=== PATIENT | female | born 1950 | race Caucasian/White ===

== ENCOUNTER 2019-03-31 17:09 | Inpatient (IN) | payer MEDICARE, BC ==
[~2019-03-31] VITALS: Ht 165.1 cm; Wt 61.2 kg
--- NOTE | 2019-03-31 17:12 | NUR ---
PT BIBPA FROM HOME FOR FAILURE TO THRIVE, PER REPORT PT HASNT BEEN EATING/NOT TAKING CARE OF HERSELF; PT TO BED 10, -SOB, NAD NOTED, PENDING MD GATES
[2019-03-31] MEDS ORDERED: LEVO50TA8 PO (17:29)
[2019-03-31 17:36] LABS: BASOPHILS # (AUTO) 0.1 /CMM (0.0-0.2); BASOPHILS % (AUTO) 0.8 % (0.0-2.0); EOSINOPHILS % (AUTO) 0.3 % (0.0-6.0); HEMATOCRIT 38 % (33-45); HEMOGLOBIN 12.6 g/dL (11.5-14.8); LYMPHOCYTES # (AUTO) 1.3 /CMM (0.8-4.8); LYMPHOCYTES % (AUTO) 14.8 % (20.0-44.0); MEAN CORPUSCULAR HGB CONC 33 g/dl (31.0-36.0); MEAN CORPUSCULAR VOLUME 95 fL (82-100); MONOCYTES # (AUTO) 0.9 /CMM (0.1-1.30); MONOCYTES % (AUTO) 10.1 % (2.0-12.0); NEUTROPHILS # (AUTO) 6.5 /CMM (1.8-8.9); PLATELET COUNT (AUTO) 432 /CMM (150-450); RED BLOOD CELL COUNT(AUTO) 3.97 MIL/uL (4.0-5.2); WHITE BLOOD COUNT (AUTO) 8.7 K/uL (4.3-11.0)
[2019-03-31 17:43] LABS: CALCIUM, SERUM 10.2 mg/dL (8.5-10.1); CARBON DIOXIDE 16 mmol/L (21-32); CHLORIDE 103 mmol/L (98-107); GLUCOSE 108 mg/dL (74-106); POTASSIUM 4.2 mmol/L (3.5-5.1); SODIUM SERUM 137 mmol/L (136-145); UREA NITROGEN, BLOOD 39 mg/dL (7-18)
[2019-03-31 17:49] LABS: ALANINE AMINOTRANSFERASE 35 U/L (12-78); ALBUMIN 2.8 g/dL (3.4-5.0); ALKALINE PHOSPHATASE 76 U/L (46-116); ASPARTATE AMINOTRANSFERASE 24 U/L (15-37); BILIRUBIN,DIRECT 0.1 mg/dL (0.0-0.2); BILIRUBIN,TOTAL 0.6 mg/dL (0.2-1.0); SALICYLATE 2.8 mg/dL (2.8-20.0); TOTAL PROTEIN, SERUM 7.7 g/dL (6.4-8.2)
[2019-03-31 17:55] LABS: ACETAMINOPHEN < 10 ug/ml (10-30); ALCOHOL, BLOOD < 3 mg/dL (0-0)
[2019-03-31 18:14] LABS: APPEARANCE,URINE Slightly Cloudy (CLEAR); BILIRUBIN,URINE MODERATE (NEGATIVE); BLOOD, URINE Small Ery/uL (NEGATIVE); COLOR,URINE Yellow (YELLOW); KETONES,URINE >=160 (NEGATIVE); LEUKOCYTE ESTERASE ,URINE Small (NEGATIVE); NITRITE, URINE Negative (NEGATIVE); PH,URINE 5.5 (5.0-8.0); PROTEIN,URINE 30 mg/dl (NEGATIVE); UGLUCOSE Negative (NEGATIVE); UROBILINOGEN,URINE 0.2 EU/dL (0.2)
[2019-03-31 18:24] LABS: BACTERIA,URINE Few /HPF (None Seen); FINE GRANULAR CASTS,URINE Rare /LPF (None Seen); HYALINE CASTS, URINE Few /LPF (None Seen); SQUAMOUS EPITHELIAL CELL,UR Moderate /HPF (None Seen)
--- NOTE | 2019-03-31 19:15 | NUR ---
PT RECEIVED FROM CON XIAO FOR HARRIS. IV LINE STARTED ON L AC 20G. PT IN BED. AND NOTED. PT REFUSED TO HAVE HER VS TAKEN.
[2019-03-31] MEDS ORDERED: ONDANSETRON HCL/PF 4 MG/2 ML VIAL IVP ONE (19:30)
[2019-03-31] MEDS ORDERED: IV NS 0.9% 1,000 ML BAG IV ONE (19:30)
[2019-03-31] MEDS ORDERED: ONDANSETRON HCL/PF 4 MG/2 ML VIAL ONE (19:30)
--- NOTE | 2019-03-31 20:14 | NUR ---
REPORT GIVEN TO CON MABRY FOR HARRIS.
--- NOTE | 2019-03-31 20:26 | NUR ---
PT BROUGHT UP TO UNIT BY EMT ON [facility].
[2019-03-31] MEDS ORDERED: LORAZEPAM 0.5 MG TABLET PO PRN (20:30)
[2019-03-31] MEDS ORDERED: TEMAZEPAM 7.5 MG CAPSULE PO PRN (20:30)
[2019-03-31] MEDS ORDERED: MAGNESIUM HYDROXIDE 30 ML UDC PO PRN (20:30)
[2019-03-31] MEDS ORDERED: MAG HYDROX/AL HYDROX/SIMETH 30 ML UDC PO PRN (20:30)
[2019-03-31] MEDS ORDERED: ACETAMINOPHEN 325 MG TABLET PO PRN (20:30)
--- NOTE | 2019-03-31 20:30 | NUR ---
Admitted a 68 y/o female from Home. Patient on 5150 hold, per hold patient has been increasingly depressed and isolating herself. She has been in bed for 2 weeks and not eating condition is getting worse everyday. Patient also refused medical treatment. Upon face to face evaluation, initially, patient presents as alert and oriented x 3-4, anxious, angry, upset, crying, uncooperative, refused contraband checking. When explained the hold, patient angrily stated that it is not true. Patient arrived via gurney with 1 persons assist. Patient assisted to the room, refused body check and pictures. Patient is ambulatory and steady gait. Limit setting done. Redirected the patient. Time given to the patient. Will continue to monitor
--- NOTE | 2019-03-31 20:30 | NUR ---
Admitted a 68 y/o female from Home evaluated at [facility] ER. Patient on 5150 hold, c/o increase depression and suicidal ideation with plan to OD. Upon face to face evaluation, patient presents as alert and oriented x 4, calm, cooperative, withdrawn, teary eyed and patient stated that she just wished that she will stop breathing and be with her daughter who last November. Patient also stated that she is hearing the voices of her daughter trying to tell her something that she should have told when she was still alive. Patient contracted for safety and seeking helf to prevent her from hurting herself. Per patient, she also had history of overdose 2 years ago. Patient arrived via gurney with 2 persons assist. Patient assisted to the room, changed to clean gown. Skin and body assessment done. Pictures taken and placed in chart. Patient has difficulty walking, PT eval triggered. Explained the paper works and patient signed the consents. Informed of visiting hours and unit policies. Belongings and contraband checked. Q15 min checks initiated. Care plan started. Vital signs checked and recorded. Patient's rights discussed, guide to prescription meds handbook provided. Patient advised of the hold. MRSA specimen collected. Notified Dr. Ward of the admission. Will monitor patient for mood, safety and behavior. Will endorse to the day shift. Addendum: 04/01/19 at 0005 by YAMILET DUMAS II, RN typed in error
--- NOTE | 2019-03-31 20:50 | NUR ---
Seen patient talking to her roommate. Patient calm, cooperative and paranoid. Patient denies SI/HI and denies hearing voices. Explained the paper works and patient signed the consents. Still refused body check and pictures. Informed patient of visiting hours and unit policies. Belongings and contraband checked. Q15 min checks initiated. Care plan started. Vital signs checked and recorded. Patient's rights discussed, guide to prescription meds handbook provided. Patient advised of the hold. MRSA specimen collected in the ER. Notified Dr. Pettit of the admission. Will continue to monitor and will endorse to the day shift.
--- NOTE | 2019-03-31 23:50 | NUR ---
Notified Outdoor Adventure Instructor. Kaylene Duque of the admission and Kaylene reconcile the medication. Will continue to monitor
[2019-04-01] MEDS ORDERED: HYDROCORTISONE 0.5% CREAM 28.35 GM TUBE TP PRN (02:00)
[2019-04-01 02:07] VITALS: BP 129/89
[2019-04-01 06:22] LABS: BASOPHILS % (AUTO) 0.4 % (0.0-2.0); EOSINOPHILS % (AUTO) 1.3 % (0.0-6.0); HEMATOCRIT 35 % (33-45); HEMOGLOBIN 11.7 g/dL (11.5-14.8); LYMPHOCYTES # (AUTO) 1.9 /CMM (0.8-4.8); MEAN CORPUSCULAR HGB CONC 34 g/dl (31.0-36.0); MEAN CORPUSCULAR VOLUME 94 fL (82-100); MONOCYTES # (AUTO) 0.8 /CMM (0.1-1.30); MONOCYTES % (AUTO) 11.8 % (2.0-12.0); NEUTROPHILS # (AUTO) 4.2 /CMM (1.8-8.9); NEUTROPHILS % (AUTO) 59.5 % (43.0-81.0); PLATELET COUNT (AUTO) 412 /CMM (150-450); RED BLOOD CELL COUNT(AUTO) 3.68 MIL/uL (4.0-5.2)
[2019-04-01 06:38] LABS: CHOLESTEROL 90 mg/dL (<200); HDL CHOLESTEROL 29 mg/dL (40-60); LDL 48 mg/dL (0-99); TRIGLYCERIDES 86 mg/dL (30-150)
[2019-04-01 06:41] LABS: ALBUMIN 2.5 g/dL (3.4-5.0); BILIRUBIN,TOTAL 0.6 mg/dL (0.2-1.0); CALCIUM, SERUM 9.8 mg/dL (8.5-10.1); TOTAL PROTEIN, SERUM 6.9 g/dL (6.4-8.2)
--- NOTE | 2019-04-01 06:57 | NUR ---
gps nrn note: Notified Domingo () of the admission of he patient. Will continue to monitor
[2019-04-01 08:00] VITALS: BP 127/81
--- NOTE | 2019-04-01 09:38 | NUR ---
WOUND CARE CONSULT: PT PRESENTS AMBULATORY AND CONTINENT WITH CHEST/BACK RASH, PRESENT ON ADMISSION. DEFER TO MD FOR RASH. WILL SEE PRN.
--- NOTE | 2019-04-01 09:44 | NUR ---
RN-CO: Patient was seen and examined by Dr Holt.
[2019-04-01] MEDS: LEVOTHYROXINE SODIUM 50 MCG TABLET PO SCH ×2 (10:38→10:40)
--- NOTE | 2019-04-01 12:10 | NUR ---
GROUP NOTE: SW encouraged pt to attend group on this present day discussing the topic of discharge, pt refused to attend stating she was feeling very depressed.
--- NOTE | 2019-04-01 12:35 | NUR ---
CHERIE called the pts , Domingo ([phone]), and left a message on his voicemail stating that the SW would like to discuss the pts treatment plan and initial discharge plan.
--- NOTE | 2019-04-01 13:15 | NUR ---
Initial Discharge Plan: Pt currently resides at [address] [place] [address]; ([phone]), with her . Per pt, she would like to return to her home. CHERIE will work with the pt and the MD regarding appropraite discharge planning. SW will form a safe and proper discharge plan.
[2019-04-01] MEDS: ENSURE ENLIVE 237 ML LIQUID (VANILLA) PO SCH ×2 (13:53→17:00)
--- NOTE | 2019-04-01 16:02 | NUR ---
Patient refused taking her levothyroxine medication and stated that "my medication comes in capsule form" and i don't take synthroid". RN tried redirecting the patient and explained that another name for synthroid is levothyroxine. She still refused taking the medication. Therefore, medication was wasted because it was opened already.
[2019-04-01 20:00] VITALS: BP 134/59
--- NOTE | 2019-04-01 20:00 | NUR ---
PT IS ANXIOUS V/S BP 134/59 PULSE 124 OFFERED ATIVAN PT REFUSED. WILL CONTINUE TO MONITOR FOR SAFETY.
--- NOTE | 2019-04-01 21:20 | NUR ---
PT STILL ANXIOUS CHECK V/S BP 147/78 PULSE 112 OFFERED ATIVAN PT STILL REFUSED. EXPLAIN THE RISK AND BENEFITS OF NOT TAKING HER MEDS. PAGED DR BETANCUR FOR ORDERS. WILL CONTINUE TO MONITOR FOR SAFETY.
[2019-04-01] MEDS ORDERED: MIRTAZAPINE 15 MG TABLET PO SCH (22:00)
--- NOTE | 2019-04-02 02:35 | NUR ---
CHECK PT'S V/S 157/[address] BETANCUR AND ORDERED STAT EKG. WILL CONTINUE TO MONITOR.
--- NOTE | 2019-04-02 03:17 | NUR ---
ORDERED TO TRANSFER PT TO MED SURG YO. BUFFY (ICT SALES REPRESENTATIVE) INFORMED AND MED SURG KORINA (CHARGE NURSE). PT WILL BE TRANSFERRED TO ROOM 314-1.
--- NOTE | 2019-04-04 11:05 | NUR ---
Discharge Note: Pt was discharged to the Medical Floor of [facility] on 04/02/19 for tachycardia.
[2019-04-04] MEDS ORDERED: PROP10TA68 PO (16:51)
== END 2019-04-02 03:41 | disposition home or self-care (01) | DRG 885 ==
LOC: ER 17:12 → GPS 20:05
PROVIDERS: ADMIT Psychiatry & Neurology Psychosomatic Medicine; ATTEND Student in an Organized Health Care Education/Training Program
DX: F39 Unspecified mood [affective] disorder (principal); E44.0 Moderate protein-calorie malnutrition; F32.9 Major depressive disorder, single episode, unspecified; E86.0 Dehydration; E03.9 Hypothyroidism, unspecified; F41.9 Anxiety disorder, unspecified; M79.7 Fibromyalgia; R79.89 Other specified abnormal findings of blood chemistry; L30.9 Dermatitis, unspecified
CPT/HCPCS: 36415; 80048-TC; 80053-TC; 80061-TC; 80076-TC; 80305; 81000-TC; 84439-TC; 84443-TC; 85025-TC; 87081-TC; 97116-TC; 97530-TC; G0480; J2405; J7030

== ENCOUNTER 2019-04-02 04:04 | Inpatient (IN) | payer MEDICARE, BC ==
[~2019-04-02] VITALS: Ht 160 cm; Wt 62.6 kg
--- NOTE | 2019-04-02 03:45 | NUR ---
CALLED RASHMI ESCOBAR (SPOUSE) CANNOT LEAVE A MESSAGE VOICE MAILBOX IS FULL.
--- NOTE | 2019-04-02 03:50 | NUR ---
RN NOTES: ADMITTED FROM [facility] ACCOMPANIED BY DEEPIKA/RN/GPS, PER ENDORSEMENT PATIENT WAS ADMITTED FROM HOME/ER/GPS BROUGHT BY DUE TO SUICIDAL THOUGHTS AND DECREASE ORAL INTAKE,INCREASE DEPRESSION AND ISOLATION FOR 2 WEEKS, SHE HAS RASHES ON FRONTAL,BACK CHEST AREA, HR-130 AND SHE MISS 2 DAYS OF HER LEVOTHYROXINE DOSE, SHE REFUSE MEDICATION, AMBULATORY,ON 5150 HOLD ON 04/03/19. -TRANSFER FROM GPS TO [facility] DUE TO INCREASE HR-130,ON TELE MONITOR ST-129,A/O3-4, WITH PERIODS OF CONFUSION, THERE ARE TIMES HER THOUGHT ARE MIX UP,ORIENTED TO UNIT AND STAFF, NO IVF, NO IV CANNULA, FALL,SAFETY AND ASPIRATION PRECAUTION OBSERVED,BED LOW AND LOCKED, CALL LIGHT WITHIN EASY REACH, FUEL SYSTEM MAINTENANCE SUPERVISOR WAS IN THE NURSES STATION WHEN PATIENT WAS ADMITTED,INDERAL GIVEN. AGREE FOR BODY CHECK: 1)MULTIPLE RASHES(REDDISH/PIN SOME WITH CRUSTING ALREADY) NOTED ON THE ANTERIOR CHEST AREA AND POSTERIOR CHEST AREA 2)MULTIPLE RASHES AND DISCOLORATION ON THE RUE,LUE. WILL REFER TO WOUND NURSE FOR THE TREATMENT OF RASHES.WITH 1;1 SITTER. -ENDORSED TO NEXT SHIFT FOR CONTINUITY OF CARE.
[~2019-04-02 04:04] MED LIST: LEVO50TA8 PO
[2019-04-02] MEDS ORDERED: HYDROCODONE/APAP 5/325MG 1 EACH TABLET PO PRN (04:30)
[2019-04-02] MEDS ORDERED: ONDANSETRON HCL/PF 4 MG/2 ML VIAL IVP PRN (04:30)
[2019-04-02] MEDS ORDERED: ACETAMINOPHEN 325 MG TABLET PO PRN (04:30)
[2019-04-02] MEDS ORDERED: ZOLPIDEM TARTRATE 5 MG TABLET PO PRN (04:30)
[2019-04-02] MEDS ORDERED: MAGNESIUM HYDROXIDE 30 ML UDC PO PRN (04:30)
[2019-04-02] MEDS ORDERED: Z GUARD REMEDY 2 OZ OINT TP PRN (04:30)
[2019-04-02 05:00] VITALS: BP 159/50
[2019-04-02] MEDS: PROPRANOLOL HCL 10 MG TABLET PO SCH ×3 (05:44→21:56)
[2019-04-02 06:45] LABS: BASOPHILS % (AUTO) 0.4 % (0.0-2.0); EOSINOPHILS % (AUTO) 0.5 % (0.0-6.0); HEMATOCRIT 33 % (33-45); HEMOGLOBIN 11.2 g/dL (11.5-14.8); LYMPHOCYTES # (AUTO) 1.8 /CMM (0.8-4.8); LYMPHOCYTES % (AUTO) 21.4 % (20.0-44.0); MEAN CORPUSCULAR HGB CONC 34 g/dl (31.0-36.0); MEAN CORPUSCULAR VOLUME 95 fL (82-100); MONOCYTES # (AUTO) 0.8 /CMM (0.1-1.30); MONOCYTES % (AUTO) 9.8 % (2.0-12.0); NEUTROPHILS # (AUTO) 5.7 /CMM (1.8-8.9); NEUTROPHILS % (AUTO) 67.9 % (43.0-81.0); PLATELET COUNT (AUTO) 408 /CMM (150-450); RED BLOOD CELL COUNT(AUTO) 3.49 MIL/uL (4.0-5.2); WHITE BLOOD COUNT (AUTO) 8.3 K/uL (4.3-11.0)
--- NOTE | 2019-04-02 06:48 | NUR ---
DR. MARIE AWARE OF THE PT TRANSFER TO MED SURG TELE ROOM 314-1.
[2019-04-02 07:02] LABS: CREATININE 0.9 mg/dL (0.6-1.3); MAGNESIUM 1.6 mg/dL (1.8-2.4); PHOSPHORUS 4.6 mg/dL (2.5-4.9); POTASSIUM 3.9 mmol/L (3.5-5.1)
--- NOTE | 2019-04-02 07:25 | NUR ---
RECEIVED PATIENT A/O X2-3, WITH SITTER AT BEDSIDE. 5150 HOLD UNTIL 04/03/19 1214. NO IV ASSESS AT THIS TIME. BREATHING UNLABORED AND EVEN ON ROOM AIR , HR 110, ST. PATIENT DENIES ANY TYPE OF PAIN.WILL CONTINUE TO MONITOR
[2019-04-02 08:00] VITALS: BP 125/55
[2019-04-02] MEDS ORDERED: IV NS 0.9% 1,000 ML IV PRN (08:49)
[2019-04-02 09:48] LABS: THYROID STIMULATING HORMONE 0.007 uIU/mL (0.358-3.74)
--- NOTE | 2019-04-02 10:45 | NUR ---
IV ASSESS TO THE LEFT AC G 22. FLUSHING WELL/
[2019-04-02] MEDS: Magnesium 1GM/D5W 100ML PREMIX 100 ML IV SCH ×2 (11:19→14:05)
--- NOTE | 2019-04-02 12:10 | NUR ---
PATIENT REFUSED IV FLUIDS. BENEFITS EXPLAINED; PATIENT STILL REFUSING.
--- NOTE | 2019-04-02 14:30 | NUR ---
encouraged patient to drink water; patient verbalized understanding.
[2019-04-02 16:00] VITALS: BP 133/64
--- NOTE | 2019-04-02 19:16 | NUR ---
patient remain stable, depressed, sitter at bedside. iv line intact and paten on lfa #22. All needs attended. Will endorse to next shift for HARRIS.
--- NOTE | 2019-04-02 20:00 | NUR ---
RN NOTES RECEIVED PATIENT IN BED, IGNORING RN'S ACKNOWLEDGEMENT, NOT IN APPARENT PAIN, ISOLATIVE, DEPRESSED, DOES NOT WANT TO BE BOTHERED, PER AM NURSE, REFUSING IV INFUSION OF MAGNESIUM, RECONNECT IV, THEN REFUSED. ONE ON ONE SITTER AT THE BEDSIDE.
[2019-04-02 20:03] VITALS: BP 138/53
--- NOTE | 2019-04-02 22:50 | NUR ---
RN NOTES IV SITE LEAKING, REFUSED IV REINSERTION, BECOMES MORE AGITATED, INSIDE SALES LEAD GYPSY NOTIFIED.
--- NOTE | 2019-04-02 23:14 | NUR ---
RN NOTES PATIENT EATING PEANUT AND JELLY SANDWICH AND DRINKING 2 BOTTLES OF WATER
--- NOTE | 2019-04-03 01:20 | NUR ---
RN NOTES PATIENT CRYING, REQUESTING HEATING PAD, COMPLAINING OF NECK PAIN REFUSED NORCO, NOTIFIED WELDER HELPER GYPSY, WITH NEW ORDER OF XANAX
[2019-04-03] MEDS ORDERED: ALPRAZOLAM 1 MG TABLET PO PRN (01:30)
--- NOTE | 2019-04-03 01:34 | NUR ---
RN NOTES PATIENT REFUSED XANAX, MEDICATION RETURNED
--- NOTE | 2019-04-03 02:17 | NUR ---
RN NOTES REFUSED XANAX, WASTED MEDICATION
--- NOTE | 2019-04-03 06:49 | NUR ---
RN NOTES PATIENT IS ALERT AND AWAKE, CALM AT THIS TIME, NO SOB, SLEPT FOR 3 HOURS ON AND OFF, AMBULATES TO THE TOILET WITH SUPERVISION, CRYING INTERMITTENT, REQUESTING BELONGINGS, 5150 WILL TODAY, SITTER AT THE BEDSIDE
--- NOTE | 2019-04-03 07:20 | NUR ---
RECEIVED PATIENT AWAKE A/O X3 , CALM AND COOPERATIVE. PATIENT HAS NO IV LINE , WILL INFORM MD. PATIENT HAS SITTER AT THIS TIME. 5150 HOLD WILL TODAY AT 1240. WILL CONTINUE TO MONITOR
[2019-04-03 07:41] LABS: ALBUMIN 2.3 g/dL (3.4-5.0); BILIRUBIN,TOTAL 0.4 mg/dL (0.2-1.0); CALCIUM, SERUM 9.7 mg/dL (8.5-10.1); CREATININE 0.8 mg/dL (0.6-1.3); MAGNESIUM 1.6 mg/dL (1.8-2.4); PHOSPHORUS 4.8 mg/dL (2.5-4.9); POTASSIUM 3.9 mmol/L (3.5-5.1); TOTAL PROTEIN, SERUM 6.3 g/dL (6.4-8.2)
[2019-04-03 07:57] LABS: BASOPHILS % (AUTO) 0.5 % (0.0-2.0); EOSINOPHILS % (AUTO) 2.7 % (0.0-6.0); HEMATOCRIT 33 % (33-45); HEMOGLOBIN 11.3 g/dL (11.5-14.8); LYMPHOCYTES # (AUTO) 2.1 /CMM (0.8-4.8); LYMPHOCYTES % (AUTO) 30.8 % (20.0-44.0); MEAN CORPUSCULAR HGB CONC 34 g/dl (31.0-36.0); MEAN CORPUSCULAR VOLUME 94 fL (82-100); MONOCYTES # (AUTO) 0.8 /CMM (0.1-1.30); MONOCYTES % (AUTO) 11.8 % (2.0-12.0); NEUTROPHILS # (AUTO) 3.7 /CMM (1.8-8.9); NEUTROPHILS % (AUTO) 54.2 % (43.0-81.0); PLATELET COUNT (AUTO) 438 /CMM (150-450); RED BLOOD CELL COUNT(AUTO) 3.53 MIL/uL (4.0-5.2); WHITE BLOOD COUNT (AUTO) 6.8 K/uL (4.3-11.0)
[2019-04-03 08:00] VITALS: BP 137/52
--- NOTE | 2019-04-03 08:00 | NUR ---
PATIENT REFUSED IV LINE. BENEFITS EXPLAINED; PATIENT STILL REFUSING. WILL INFORM MD .
[2019-04-03] MEDS: PROPRANOLOL HCL 10 MG TABLET PO SCH ×2 (09:01→21:45)
--- NOTE | 2019-04-03 09:10 | NUR ---
IV MAGNESIUM CHANGED TO PO PER ADAIR N.P. DUE TO PATIENT REFUSING IV LINE.
[2019-04-03] MEDS ORDERED: Magnesium 1GM/D5W 100ML PREMIX 100 ML IV SCH (09:59)
[2019-04-03 10:30] LABS: THYROID STIMULATING HORMONE 0.009 uIU/mL (0.358-3.74)
[2019-04-03] MEDS ORDERED: MAGNESIUM OXIDE 400 MG TABLET PO ONE (10:30)
[2019-04-03 16:00] VITALS: BP 128/95
--- NOTE | 2019-04-03 18:50 | NUR ---
REMAINS STABLE ON ROOM AIR WITH STABLE VS. PATIENT CLEARED BY DR. KINNEY, HOLD DISCONTINUED, ORDER FOR SITTER DISCONTINUED.POSSIBLE D/C TOMORROW. WILL ENDORSE TO NEXT SHIFT FOR HARRIS
--- NOTE | 2019-04-03 19:05 | NUR ---
RN MS OPENING NOTES RECEIVED PATIENT IN BED AWAKE ALERT AND ORIENTED X3, RESPIRATIONS EVEN AND UNLABORED WITH EQUAL RISE AND FALL OF CHEST, DENIES ANY PAIN OR DISCOMFORT AT THIS TIME, PER REPORT AND MD KINNEY HOLD IS DISCONTINUED WITH D/C PLANNING, PATIENT HAS NO IV SITE, MD AWARE AND REFUSES IV INSERTION AND IV HYDRATION STATES " I DRINK MY OWN WATER". ORIENTED TO STAFF AND CALL LIGHT AND KEPT WITHIN REACH, MADE AWARE TO USE CALL LIGHT FOR ASSISTANCE, SAFETY PRECAUTIONS IN PLACE LOW BED AND LOCKED,BED ALARM IN PLACE ALL NEEDS ATTENDED AT THIS TIME, REMAINS COMFORTABLE WILL CONTINUE FREQUENT CHECKS FOR SAFETY.
[2019-04-03 20:00] VITALS: BP 124/60
[2019-04-03 20:46] VITALS: BP 117/52
--- NOTE | 2019-04-04 07:17 | NUR ---
RN MS CLOSING NOTES PATIENT IN BED AWAKE ALERT AND ORIENTED X3, RESPIRATIONS EVEN AND UNLABORED WITH EQUAL RISE AND FALL OF CHEST, DENIES ANY PAIN OR DISCOMFORT AT THIS TIME, PER MD FARRAG HOLD IS DISCONTINUED WITH D/C PLANNING, PATIENT HAS NO IV SITE, MD AWARE AND REFUSES IV INSERTION AND IVF HYDRATION STATES " I DRINK MY OWN WATER". CALL LIGHT KEPT WITHIN REACH, MADE AWARE TO USE CALL LIGHT FOR ASSISTANCE, SAFETY PRECAUTIONS IN PLACE LOW BED AND LOCKED,BED ALARM IN PLACE ALL NEEDS ATTENDED AT THIS TIME, REMAINS COMFORTABLE WILL CONTINUE FREQUENT CHECKS FOR SAFETY AND ENDORSE TO NEXT SHIFT.
[2019-04-04 07:50] LABS: CALCIUM, SERUM 9.7 mg/dL (8.5-10.1); CREATININE 0.7 mg/dL (0.6-1.3); MAGNESIUM 1.6 mg/dL (1.8-2.4); POTASSIUM 3.9 mmol/L (3.5-5.1)
[2019-04-04 08:00] VITALS: BP 160/67
[2019-04-04] MEDS ORDERED: Magnesium 1GM/D5W 100ML PREMIX 100 ML IV SCH (08:47)
[2019-04-04 09:16] VITALS: BP 160/67
[2019-04-04] MEDS: PROPRANOLOL HCL 10 MG TABLET PO SCH (09:16)
--- NOTE | 2019-04-04 10:20 | NUR ---
PATIENT REFUSING IV MAGNESIUM. RISKS AND BENEFITS EMPLANED; PATIENT STILL REFUSING.WILL INFORM MD
[2019-04-04] MEDS ORDERED: PROP10TA68 PO (16:51)
--- NOTE | 2019-04-04 17:40 | NUR ---
PATIENT CLEARED FOR D/C BY MD. PATIENT ALERT AND ORIENTED X3 . BREATHING EVEN AND UNLABORED ON ROOM AIR, NO DISTRESS NOTED. INSTRUCTIONS AND EDUCATION PROVIDED TO PATIENT; PATIENT VERBALIZED UNDERSTANDING AND WILL TAKE MEDICATION ORDERED AND F/U WITH PCP IN ONE WEEK. PATIENT RECEIVED A NEW PRESCRIPTION. PATIENT SIGHED VALUABLE FOR AND ALL BELONGINGS WITH THE PATIENT INCLUDING MEDICATION, CELL PHONE, WALLET , MONEY AND YELLOW NECKLESS EARNINGS. D/C PAPERS TAKEN IN PLACED IN THE CHART. PATIENT HAD NO IV LINE.ID WRIST BAND WAS REMOVED. PATIENT SAFELY TRANSFERRED TO [facility] CAR VIA WHEELCHAIR ACCOMPANIED BY AND COLETTE DAVIDSON Addendum: 04/04/19 at 1842 by AINKET STRICKLAND RN D/C PICTURES TAKEN AND PLACED IN THE CHART
== END 2019-04-04 17:40 | disposition home or self-care (01) | DRG 644 ==
LOC: MED 04:04 → TELE 05:37 → MED 08:55
PROVIDERS: ADMIT Nurse Practitioner Acute Care; ATTEND Hospitalist
DX: E05.90 Thyrotoxicosis, unspecified without thyrotoxic crisis or storm (principal); E44.0 Moderate protein-calorie malnutrition; E86.0 Dehydration; F32.9 Major depressive disorder, single episode, unspecified; F41.9 Anxiety disorder, unspecified; Z79.899 Other long term (current) drug therapy; R79.89 Other specified abnormal findings of blood chemistry; I70.0 Atherosclerosis of aorta; I27.20 Pulmonary hypertension, unspecified; E83.42 Hypomagnesemia; L30.9 Dermatitis, unspecified; F39 Unspecified mood [affective] disorder; Z87.898 Personal history of other specified conditions
CPT/HCPCS: 36415; 76536-TC; 80048-TC; 80053-TC; 83735-TC; 84100-TC; 84439-TC; 84443-TC; 85025-TC; 93307-TC; G0378; J3475; J7030